=== PATIENT | female | born 1950 | race Caucasian/White ===

== ENCOUNTER 2022-11-01 21:12 | Inpatient (IN) | payer BC ==
[~2022-11-01] VITALS: Ht 165.1 cm; Wt 78.9 kg
[2022-11-01 21:17] VITALS: BP_SYST 166; PULSE 78; RESP 19; TEMP 97.2; O2SAT 98
--- NOTE | 2022-11-01 21:35 | NUR ---
Patient ambulated to bed 4 and connected to .
--- NOTE | 2022-11-01 22:00 | NUR ---
No change from previous assessment. Will continue to monitor VS & Clinical Status.
--- NOTE | 2022-11-01 22:20 | NUR ---
PIV 20 gauge placed to RAC. Dr. Serrano at bedside for evaluation.
[2022-11-01] MEDS ORDERED: ONDANSETRON HCL 4 MG/2 ML VIAL IVP ONE (23:15)
--- NOTE | 2022-11-01 23:16 | NUR ---
Patient medicated with Zofran 4 mg IVP.
[2022-11-01] MEDS ORDERED: NACL 0.9% 1,000 ML IV ONE (23:45)
--- NOTE | 2022-11-01 23:49 | NUR ---
Cabin Cleaner at bedside. Blood obtained & specimens sent to lab.
--- NOTE | 2022-11-02 | NUR ---
No change from previous assessment. Will continue to monitor VS & Clinical Status.
--- NOTE | 2022-11-02 00:01 | NUR ---
Patient to CT via & hospice patient care secretary.
[2022-11-02 00:06] LABS: BASOPHILS % (AUTO) 0.2 % (0.0-2.0); EOSINOPHILS # (AUTO) 0.1 K/uL (0.0-0.4); EOSINOPHILS % (AUTO) 0.8 % (0.0-4.0); HEMATOCRIT 27.5 % (36-48); HEMOGLOBIN 9.1 g/dL (12.0-16.0); LYMPHOCYTES # (AUTO) 0.8 K/uL (1.0-5.5); LYMPHOCYTES % (AUTO) 6.2 % (20.5-51.5); MEAN CORPUSCULAR HEMOGLOBIN 29 pg (27-31); MEAN CORPUSCULAR HGB CONC 33 % (32-36); MEAN CORPUSCULAR VOLUME 87 fL (79.0-98.0); MONOCYTES # (AUTO) 0.9 K/uL (0.0-1.0); MONOCYTES % (AUTO) 6.7 % (1.7-9.3); NEUTROPHILS # (AUTO) 11.1 K/uL (1.8-7.7); NEUTROPHILS % (AUTO) 86.1 % (40.0-70.0); PLATELET COUNT (AUTO) 286 K/uL (130-430); RED BLOOD CELL COUNT(AUTO) 3.15 MIL/uL (4.2-6.2); RED CELL DISTRIBUTION WIDTH 15.6 % (9.0-15.0)
--- NOTE | 2022-11-02 00:06 | NUR ---
Patient return to bed [address]
[2022-11-02 00:18] LABS: ALANINE AMINOTRANSFERASE 15 U/L (12-78); ALBUMIN 3.7 g/dL (3.4-4.8); ANION GAP 7 (5-15); ASPARTATE AMINOTRANSFERASE 15 U/L (10-37); CALCIUM 9.3 mg/dL (8.4-11.0); CHLORIDE 100 mmol/L (98-107); GLUCOSE 116 mg/dL (70-99); TOTAL BILIRUBIN 0.3 mg/dL (0.0-1.0); UREA NITROGEN, BLOOD 28 mg/dL (8-21)
[2022-11-02] MEDS: MORPHINE 4 MG INJ. 4 MG/ML VIAL IVP ONE ×2 (00:25→00:31)
--- NOTE | 2022-11-02 00:26 | NUR ---
IVF NS 1000 ml bolus given; and, Morphine 4 mg IVP given. Addendum: 11/02/22 at 0032 by [id number] Patietn refuse Morphine.
[2022-11-02 00:35] LABS: CLARITY/URINE CLEAR (CLEAR); COLOR,URINE YELLOW (YELLOW); GLUCOSE,URINE NEGATIVE (NEGATIVE); KETONES,URINE NEGATIVE (NEGATIVE); PROTEIN URINE NEGATIVE (NEGATIVE)
[2022-11-02 00:36] LABS: BILIRUBIN,URINE NEGATIVE (NEGATIVE); BLOOD, URINE NEGATIVE (NEGATIVE); LEUKOCYTE ESTERASE ,URINE NEGATIVE (NEGATIVE); NITRITE, URINE NEGATIVE (NEGATIVE); UROBILINOGEN,URINE 0.2 (0.2-1.0)
--- NOTE | 2022-11-02 02:00 | NUR ---
No change from previous assessment. Will continue to monitor VS & Clinical Status.
[2022-11-02] MEDS ORDERED: ONDANSETRON HCL 4 MG/2 ML VIAL IVP ONE (02:45)
--- NOTE | 2022-11-02 02:52 | NUR ---
PATIENT MOVED TO BED 8.
--- NOTE | 2022-11-02 03:10 | NUR ---
RECIEVED REPORT FROM COURTNEY FIGUEROA ASSUMED CARE OF PT
[2022-11-02] MEDS ORDERED: ACETAMINOPHEN 500 MG TABLET PO ONE (03:15)
[2022-11-02] MEDS ORDERED: metroNIDAZOLE 500 mg/NS 100 ML IV ONE (03:15)
--- NOTE | 2022-11-02 03:24 | NUR ---
Admit bed requested Patient will be admitted to care of . Admitted to MED SURG unit. Diagnosis COLITIS Inpatient (Yes or No) YES Observation (Yes or No) NO Orientation concerns or request close to nursing station (Yes or No) NO Covid Status NA On vent or bipap NO Isolation requirements NO Needs a sitter NO From Home (Yes or if No enter name of facility) YES Requires Dialysis (Yes or No) NO Med Rec Completed (Yes of No) YES
[2022-11-02] MEDS ORDERED: [UNRECOGNIZED DRUG - CODE] PO (03:53)
[2022-11-02] MEDS ORDERED: SIMV-43 PO (03:53)
[2022-11-02] MEDS ORDERED: OMEP40CA20 PO (03:53)
[2022-11-02] MEDS ORDERED: MIRA25TA PO (03:53)
[2022-11-02] MEDS ORDERED: LISI40TA13 PO (03:53)
[2022-11-02] MEDS ORDERED: CARV6.2554 PO (03:53)
[2022-11-02] MEDS: LEVOFLOXACIN 250 MG/D5W 50 ML IV SCH (04:38)
--- NOTE | 2022-11-02 04:58 | NUR ---
BELONGINGS LIST COMPLETE
--- NOTE | 2022-11-02 07:20 | NUR ---
Received report on Patient, AAOX4, resting comfortably. VSS. Patient has been assigned to room 129A med surg unit. Patient denies pain at this time. No c/o N/V/D currently. Patient placed into qa gown & assisted to place all belongings into labeled bag. VSS. Will move to Med Surg unit shortly.
--- NOTE | 2022-11-02 07:30 | NUR ---
[place] of care received at this time, pt A&Ox4, VSS, respiration even and unlabored, will cont to monitor.
--- NOTE | 2022-11-02 08:20 | NUR ---
PATIENT MOVED TO MED SURG UNIT, BED 129A. IN STABLE CONDITION AT TIME OF TRANSFER TO UNIT. PATIENT ABLE TO TRANSFER TO BED UNASSISTED. REPORT GIVEN TO HENRY TOBIN AT NURSE'S STATION. BELONGINS LIST AND MED REC COMPLETED PRIOR TO ADMISSION. PAPERWORK PROVIDED TO COMPENSATION ADJUSTER FOR CREATION OF CHART.
[2022-11-02 08:57] VITALS: BP_SYST 149; PULSE 83; RESP 16; TEMP 97.3; O2SAT 100
[2022-11-02 12:00] VITALS: BP_SYST 115; PULSE 95; RESP 19; TEMP 99.1; O2SAT 97
[2022-11-02] MEDS ORDERED: INSULIN REGULAR, HUMAN 100 UNITS/ML, 3 ML VIAL (humuLIN R) SUBCUT PRN (13:00)
[2022-11-02] MEDS ORDERED: metroNIDAZOLE 500 MG TABLET PO SCH (14:00)
[2022-11-02] MEDS ORDERED: ONDANSETRON HCL 4 MG/2 ML VIAL IVP PRN ×2 (15:45→19:00)
[2022-11-02 16:00] VITALS: BP_SYST 130; PULSE 90; RESP 17; TEMP 98.5; O2SAT 97
[2022-11-02] MEDS ORDERED: ACETAMINOPHEN 325 MG TABLET PO PRN ×2 (19:00→19:15)
[2022-11-02] MEDS ORDERED: HYDROcodone/ACETAMIN 10-325 MG TAB PO PRN (19:00)
[2022-11-02] MEDS ORDERED: HYDROcodone/ACETAMIN 5-325 MG TAB (NORCO/ VICODIN) PO PRN (19:00)
[2022-11-02] MEDS ORDERED: LORazepam 2 MG/ML VIAL IVP PRN (19:00)
[2022-11-02] MEDS ORDERED: NALOXONE HCL 0.4 MG/ML AMP (NARCAN) IVP PRN ×2 (19:00)
[2022-11-02 20:30] VITALS: BP_SYST 144; PULSE 108; RESP 18
[2022-11-02] MEDS: SIMVASTATIN 20 MG TABLET PO SCH (20:40)
[2022-11-02] MEDS: CARVEDILOL 6.25 MG TABLET (COREG) PO SCH (20:41)
[2022-11-02] MEDS: D5/0.45 NS 1,000 ML IV SCH (20:42)
[2022-11-02] MEDS ORDERED: OMEPRAZOLE Non-Formulary 20 MG CAPSULE.DR PO SCH (21:00)
--- NOTE | 2022-11-02 21:00 | NUR ---
NOTS: endorsed pt. to nurse Lynn. VS checked.due po medications given. denies any pain. IV site on rt.forearm. ambulated to the restroom. call light within reach.
[2022-11-02] MEDS ORDERED: metroNIDAZOLE 250 MG TABLET PO SCH (22:00)
[2022-11-02 22:36] VITALS: O2SAT 96
[2022-11-02] MEDS: metroNIDAZOLE 500 mg/NS 100 ML IV SCH (22:36)
--- NOTE | 2022-11-02 22:43 | NUR ---
magalys Erazo IVPB administered and infusing well, reviewed side effects and she verbalized understanding. Fingerstick BS done and obtained result of 98 mg/dL. She denies pain and has no further needs at this time.
[2022-11-03 00:17] VITALS: BP_SYST 144; PULSE 94; RESP 18; TEMP 98.2; O2SAT 96
--- NOTE | 2022-11-03 01:42 | NUR ---
Consultation Paged Reason for Consult: Leukocytosis Was consult called: Y Person who was notified: Bernice Consulting Physician: Dr. Tineo Ordering Physician: Pedro Chavarria
[2022-11-03] MEDS ORDERED: LEVOFLOXACIN 250 MG/D5W 50 ML IV ONE (04:35)
[2022-11-03] MEDS: LEVOFLOXACIN 250 MG/D5W 50 ML IV SCH (04:46)
--- NOTE | 2022-11-03 04:53 | NUR ---
Levaquin Patient is awake, watching t.v., no distress. Administered scheduled antibiotic; reviewed side effects; infusing well.
--- NOTE | 2022-11-03 05:52 | NUR ---
REASON FOR CONSULTATION: COLITIS WAS CONSULT CALLED: Y PERSON WHO WAS NOTIFIED: [facility] CONSULTING PHYSICIAN: LIS TRINIDAD [employer] EQUIPMENT TESTING SPECIALIST PHONE NUMBER: [phone] PHYSICIAN REQUESTING :DENNIS ANGEL
[2022-11-03 06:31] LABS: BASOPHILS % (AUTO) 0.6 % (0.0-2.0); EOSINOPHILS # (AUTO) 0.3 K/uL (0.0-0.4); EOSINOPHILS % (AUTO) 5.4 % (0.0-4.0); HEMATOCRIT 26.6 % (36-48); HEMOGLOBIN 8.9 g/dL (12.0-16.0); LYMPHOCYTES # (AUTO) 1.6 K/uL (1.0-5.5); LYMPHOCYTES % (AUTO) 27.2 % (20.5-51.5); MEAN CORPUSCULAR HEMOGLOBIN 30 pg (27-31); MEAN CORPUSCULAR HGB CONC 34 % (32-36); MEAN CORPUSCULAR VOLUME 88 fL (79.0-98.0); MONOCYTES # (AUTO) 0.6 K/uL (0.0-1.0); MONOCYTES % (AUTO) 11.1 % (1.7-9.3); NEUTROPHILS # (AUTO) 3.3 K/uL (1.8-7.7); NEUTROPHILS % (AUTO) 55.7 % (40.0-70.0); PLATELET COUNT (AUTO) 268 K/uL (130-430); RED BLOOD CELL COUNT(AUTO) 3.03 MIL/uL (4.2-6.2); RED CELL DISTRIBUTION WIDTH 15.6 % (9.0-15.0); WHITE BLOOD COUNT (AUTO) 5.9 K/uL (4.8-10.8)
[2022-11-03] MEDS: metroNIDAZOLE 500 mg/NS 100 ML IV SCH ×3 (06:36→22:09)
[2022-11-03] MEDS: D5/0.45 NS 1,000 ML IV SCH (06:37)
--- NOTE | 2022-11-03 06:47 | NUR ---
Fingerstick BS, Flagyl , closing notes BS result was93 mg/dL, Administered scheduled antibiotic, Flagyl and hung new bag ofD5 1/2 NS. Resting in comfortable position, no distress. Call light w/in reach, will endorse to day shift nurse
[2022-11-03 07:02] LABS: ANION GAP 11 (5-15); CALCIUM 8.9 mg/dL (8.4-11.0); CHLORIDE 107 mmol/L (98-107); GLUCOSE 92 mg/dL (74-106); PHOSPHORUS 3.6 mg/dL (2.7-4.5); UREA NITROGEN, BLOOD 17 mg/dL (8-21)
[2022-11-03 08:00] VITALS: BP_SYST 158; PULSE 87; RESP 16; TEMP 97.6; O2SAT 97
[2022-11-03] MEDS ORDERED: NON-FORMULARY MEDICATION (Mirabegron (Myrbetriq) 1 TAB) PO SCH (09:00)
[2022-11-03] MEDS: MYRBETRIQ 25 MG TABLET PO SCH (09:00)
[2022-11-03] MEDS: PANTOPRAZOLE SODIUM 40 MG TAB PO SCH (09:00)
[2022-11-03] MEDS: CARVEDILOL 6.25 MG TABLET (COREG) PO SCH ×2 (09:01→22:18)
[2022-11-03] MEDS: DILTIAZEM HCL 240 MG CAP.SR.24H PO SCH (09:02)
[2022-11-03] MEDS: lisinopriL 20 MG TABLET PO SCH (09:02)
[2022-11-03 12:00] VITALS: BP_SYST 116; PULSE 85; RESP 18; TEMP 97.8; O2SAT 98
[2022-11-03] MEDS: VANCOMYCIN HCL ORAL SOLUTION 125 MG/5 ML, 150 ML PO SCH ×3 (15:55→22:09)
[2022-11-03 16:00] VITALS: BP_SYST 130; PULSE 91; RESP 18; TEMP 98.6; O2SAT 98
--- NOTE | 2022-11-03 18:01 | NUR ---
Pt a/ox4. No c/o pain or nausea today. ID MD ordered for stool sample for labs. Pt's last BM was early this morning. Per patient it was soft with no blood in it. She has a hat to collect when she has a bowel movement next. Will continue to monitor.
[2022-11-03 20:00] VITALS: BP_SYST 143; PULSE 87; RESP 18; TEMP 97.2; O2SAT 99
--- NOTE | 2022-11-03 21:55 | NUR ---
NOTES; RECEIVED PT FROM FERMIN-HENRY TO CONTINUITY OF CARE -Pt is a/ox4, resting in bed comfortably. Pt denies any chest pain,pain,sob,or any acute distress. Bed alarmed, side rails x2,call light w/in reach. Call light w/in reach. Cont to monitor pt.
[2022-11-03] MEDS: LACTOBACILLUS RHAMNOSUS GG 1 CAP CAPSULE PO SCH (22:08)
[2022-11-03] MEDS: SIMVASTATIN 20 MG TABLET PO SCH (22:08)
[2022-11-03] MEDS: NORMAL SALINE 5 ML DISP.SYRIN IVF SCH (22:10)
--- NOTE | 2022-11-03 22:54 | NUR ---
NOTES; ENDORSED TO JUAN-RN TO CONTINUITY OF CARE. -Pt is resting in bed comfortably. No s/s any acute distress noted. Pt's condition stable. Endorsed to Juan-RN to continuity of care.
--- NOTE | 2022-11-03 23:04 | NUR ---
Report received from Zoya pelaez for continuity of care. Patient stable.
[2022-11-04 00:58] VITALS: BP_SYST 150; PULSE 75; RESP 16; TEMP 97.5; O2SAT 97
[2022-11-04] MEDS ORDERED: LEVOFLOXACIN 250 MG/D5W 50 ML IV ONE (01:17)
[2022-11-04] MEDS: LEVOFLOXACIN 250 MG/D5W 50 ML IV SCH (02:53)
[2022-11-04] MEDS: NORMAL SALINE 5 ML DISP.SYRIN IVF SCH ×2 (02:54→13:56)
[2022-11-04 04:00] VITALS: BP_SYST 140; PULSE 84; RESP 20; TEMP 98.2; O2SAT 98
--- NOTE | 2022-11-04 04:01 | NUR ---
Patient unable to have BM at the moment. Not able to collect stool sample.
[2022-11-04 05:55] LABS: BASOPHILS % (AUTO) 0.5 % (0.0-2.0); EOSINOPHILS # (AUTO) 0.3 K/uL (0.0-0.4); EOSINOPHILS % (AUTO) 5.5 % (0.0-4.0); HEMATOCRIT 23.2 % (36-48); HEMOGLOBIN 7.8 g/dL (12.0-16.0); LYMPHOCYTES # (AUTO) 1.5 K/uL (1.0-5.5); LYMPHOCYTES % (AUTO) 24.6 % (20.5-51.5); MEAN CORPUSCULAR HEMOGLOBIN 29 pg (27-31); MEAN CORPUSCULAR HGB CONC 34 % (32-36); MEAN CORPUSCULAR VOLUME 87 fL (79.0-98.0); MONOCYTES # (AUTO) 0.7 K/uL (0.0-1.0); MONOCYTES % (AUTO) 12.3 % (1.7-9.3); NEUTROPHILS # (AUTO) 3.5 K/uL (1.8-7.7); NEUTROPHILS % (AUTO) 57.1 % (40.0-70.0); PLATELET COUNT (AUTO) 238 K/uL (130-430); RED BLOOD CELL COUNT(AUTO) 2.66 MIL/uL (4.2-6.2); RED CELL DISTRIBUTION WIDTH 15.5 % (9.0-15.0); WHITE BLOOD COUNT (AUTO) 6.1 K/uL (4.8-10.8)
[2022-11-04 06:11] LABS: ALANINE AMINOTRANSFERASE 16 U/L (12-78); ANION GAP 9 (5-15); ASPARTATE AMINOTRANSFERASE 12 U/L (10-37); CALCIUM 8.2 mg/dL (8.4-11.0); CHLORIDE 106 mmol/L (98-107); CREATININE 1.29 mg/dL (0.55-1.30); GLUCOSE 87 mg/dL (74-106); TOTAL BILIRUBIN 0.2 mg/dL (0.0-1.0); UREA NITROGEN, BLOOD 16 mg/dL (8-21)
[2022-11-04 06:33] LABS: TOTAL IRON BIND. CAPACITY 325 ug/dL (250-450)
[2022-11-04 06:43] LABS: ERYTHROCYTE SEDIMENTATION RATE 6 MM/HR (0-20)
--- NOTE | 2022-11-04 06:48 | NUR ---
Patient resting throughout whole night. No distress noted. Will continue to monitor.
--- NOTE | 2022-11-04 06:49 | NUR ---
Endorsed to day shift RN for continuity of care. Patient in stable condition. No distress noted.
--- NOTE | 2022-11-04 07:30 | NUR ---
Initial Note: Report received from Juan. Patient is awake alert x4. Call light in reach, Bed in the lowest position and side rails x2 up. No pain or discomfort at this time. Will continue to monitor.
--- NOTE | 2022-11-04 07:35 | NUR ---
Patient blood sugar 83. Patient prefers regular diet. Spoke with Dr. Elder for reg diet.
[2022-11-04] MEDS: metroNIDAZOLE 500 mg/NS 100 ML IV SCH ×2 (07:39→13:56)
[2022-11-04 08:00] VITALS: BP_SYST 133; PULSE 80; RESP 18; TEMP 97.6; O2SAT 99
[2022-11-04] MEDS: MYRBETRIQ 25 MG TABLET PO SCH (09:00)
[2022-11-04] MEDS: DILTIAZEM HCL 240 MG CAP.SR.24H PO SCH (09:33)
[2022-11-04] MEDS: lisinopriL 20 MG TABLET PO SCH (09:33)
[2022-11-04] MEDS: VANCOMYCIN HCL ORAL SOLUTION 125 MG/5 ML, 150 ML PO SCH ×3 (09:34→17:10)
[2022-11-04] MEDS: LACTOBACILLUS RHAMNOSUS GG 1 CAP CAPSULE PO SCH (09:34)
[2022-11-04] MEDS: PANTOPRAZOLE SODIUM 40 MG TAB PO SCH (09:34)
[2022-11-04] MEDS: CARVEDILOL 6.25 MG TABLET (COREG) PO SCH (09:39)
[2022-11-04 11:56] VITALS: BP_SYST 132; PULSE 72; RESP 20; TEMP 98; O2SAT 100
--- NOTE | 2022-11-04 12:30 | NUR ---
Note: patient is resting in bed. No pain or discomfort at this time. Will continue to monitor. Family is at the bedside.
--- NOTE | 2022-11-04 13:43 | NUR ---
Note: New IV saline lock inserted by instructor Adela to the right hand 22G. Patient tolerated well.
[2022-11-04 16:00] VITALS: BP_SYST 130; PULSE 70; RESP 18; TEMP 97.8; O2SAT 99
--- NOTE | 2022-11-04 16:38 | NUR ---
Note: patient is resting in bed. No pain or discomfort at this time. Bed in the lowest position and side rails x2 up. Call light in reach. Will continue patient care.
[2022-11-04] MEDS ORDERED: LACT1CAP57 PO (18:23)
[2022-11-04] MEDS ORDERED: LEVO250T73 PO (18:23)
[2022-11-04] MEDS ORDERED: METR-154 PO (18:23)
--- NOTE | 2022-11-04 19:36 | NUR ---
INITIAL NOTE AT INITIAL ASSESSMENT, PATIENT IS SITTING UP IN A CHAIR AT BEDSIDE. PATIENT VERBALIZES NO PAIN. PLAN OF CARE FOR THE EVENING IS AGREED WITH THE PATIENT. PATIENT IS LOOKING FORWARD TO GETTING DISCHARGED HOME. CALL LIGHT PLACED WITHIN REACH.
--- NOTE | 2022-11-04 19:41 | NUR ---
Closing note: Report to [place]. Patient is resting in bed. No pain or discomfort at this time. Endorse to continue patient care and follow up with the discharge.
[2022-11-04 20:03] VITALS: BP_SYST 144; PULSE 66; RESP 18; TEMP 97.7; O2SAT 99
--- NOTE | 2022-11-04 20:50 | NUR ---
D/C Patient Patient given medication reconciliation form and D/C instructions. Exit Care provided. Patient verbalized understanding. MD discussed with patient the results and treatment provided. Ambulatory with steady gait for discharge to home. Patient in stable condition, ID band removed. IV catheter removed, intact and dressing applied, no active bleeding. Rx of PATIENT given. Patient educated on pain management. All belongings sent with patient. DAUGHTER ALEXIS IS HERE TO BINDING CEMENTER FRENCH CORD HER MOTHER IN PRIVATE VEHICLE.
--- NOTE | 2022-11-04 23:35 | NUR ---
INITIAL NOTE AT INITIAL ASSESSMENT, PATIENT IS SITTING UP IN A CHAIR AT BEDSIDE. PATIENT VERBALIZES NO PAIN. PLAN OF CARE FOR THE EVENING IS AGREED WITH THE PATIENT. PATIENT IS LOOKING FORWARD TO GETTING DISCHARGED HOME. CALL LIGHT PLACED WITHIN REACH. Addendum: 11/04/22 at 2337 by [facility], HENRY FIGUEROA NOTE INTENDED FOR 1935
[2022-11-05] MEDS ORDERED: LEVOFLOXACIN 250 MG/D5W 50 ML IV SCH (05:00)
[2022-11-05 08:06] LABS: FOLATE (FOLIC ACID) 11.4 ng/mL (>3.0)
== END 2022-11-04 20:30 | disposition home or self-care (01) | DRG 871 ==
LOC: SED 21:12 → SMU 11-02 03:10
PROVIDERS: ADMIT Specialist; ATTEND Specialist
DX: A41.9 Sepsis, unspecified organism (principal); N17.0 Acute kidney failure with tubular necrosis; E87.1 Hypo-osmolality and hyponatremia; A09 Infectious gastroenteritis and colitis, unspecified; E11.9 Type 2 diabetes mellitus without complications; I10 Essential (primary) hypertension; D64.9 Anemia, unspecified; E88.09 Other disorders of plasma-protein metabolism, not elsewhere classified; E83.52 Hypercalcemia; E78.5 Hyperlipidemia, unspecified; Z88.2 Allergy status to sulfonamides; Z79.899 Other long term (current) drug therapy; Z90.710 Acquired absence of both cervix and uterus
CPT/HCPCS: 36415; 76376; 80048; 80053; 81003; 82550; 82607; 82728; 82746; 82962; 83010; 83540; 83550; 83605; 83735; 84100; 85025; 85044; 85651-TC; 87040; 99285; J1956; J2270; J2405; J3490; J7030